=== PATIENT | male | born 1935 | race Two or more races ===

== ENCOUNTER 2019-09-22 13:00 | Outpatient (CLI) | payer MEDICARE, MEDICAID | END 2019-09-22 23:59 | disposition home or self-care (01) | LOC: WOU 13:00 | PROVIDERS: ATTEND Podiatrist Foot & Ankle Surgery | DX: I73.9 Peripheral vascular disease, unspecified (principal); L97.812 Non-pressure chronic ulcer of other part of right lower leg with fat layer exposed; Z48.817 Encounter for surgical aftercare following surgery on the skin and subcutaneous tissue | CPT/HCPCS: 11042 ==

== ENCOUNTER 2019-09-29 12:45 | Outpatient (CLI) | payer MEDICARE, MEDICAID | END 2019-09-29 23:59 | disposition home or self-care (01) | LOC: WOU 12:45 | PROVIDERS: ATTEND Podiatrist Foot & Ankle Surgery | DX: L97.812 Non-pressure chronic ulcer of other part of right lower leg with fat layer exposed (principal); L97.322 Non-pressure chronic ulcer of left ankle with fat layer exposed; L97.312 Non-pressure chronic ulcer of right ankle with fat layer exposed; I73.9 Peripheral vascular disease, unspecified; Z79.01 Long term (current) use of anticoagulants | CPT/HCPCS: 11042; 11045; A6210 ==

== ENCOUNTER 2019-10-06 13:00 | Outpatient (CLI) | payer MEDICARE, MEDICAID | END 2019-10-06 23:59 | disposition home or self-care (01) | LOC: WOU 13:00 | PROVIDERS: ATTEND Podiatrist Foot & Ankle Surgery | DX: I73.9 Peripheral vascular disease, unspecified (principal); L97.512 Non-pressure chronic ulcer of other part of right foot with fat layer exposed; L97.812 Non-pressure chronic ulcer of other part of right lower leg with fat layer exposed; L97.322 Non-pressure chronic ulcer of left ankle with fat layer exposed; L97.312 Non-pressure chronic ulcer of right ankle with fat layer exposed; Z79.01 Long term (current) use of anticoagulants | CPT/HCPCS: 11042; A6210 ==

== ENCOUNTER 2019-10-13 12:50 | Outpatient (CLI) | payer MEDICARE, MEDICAID | END 2019-10-13 23:59 | disposition home or self-care (01) | LOC: WOU 12:50 | PROVIDERS: ATTEND Podiatrist Foot & Ankle Surgery | DX: I73.9 Peripheral vascular disease, unspecified (principal); L97.512 Non-pressure chronic ulcer of other part of right foot with fat layer exposed; L97.812 Non-pressure chronic ulcer of other part of right lower leg with fat layer exposed; L97.322 Non-pressure chronic ulcer of left ankle with fat layer exposed; L97.312 Non-pressure chronic ulcer of right ankle with fat layer exposed; Z79.01 Long term (current) use of anticoagulants | CPT/HCPCS: 11042 ==

== ENCOUNTER 2019-10-20 13:00 | Outpatient (CLI) | payer MEDICARE, MEDICAID | END 2019-10-20 23:59 | disposition home or self-care (01) | LOC: WOU 13:00 | PROVIDERS: ATTEND Podiatrist Foot & Ankle Surgery | DX: I73.9 Peripheral vascular disease, unspecified (principal); L97.512 Non-pressure chronic ulcer of other part of right foot with fat layer exposed; L97.812 Non-pressure chronic ulcer of other part of right lower leg with fat layer exposed; L97.322 Non-pressure chronic ulcer of left ankle with fat layer exposed; L97.312 Non-pressure chronic ulcer of right ankle with fat layer exposed; Z79.01 Long term (current) use of anticoagulants | CPT/HCPCS: 11042; 87070-TC; 87186-TC ==

== ENCOUNTER 2019-10-27 12:50 | Outpatient (CLI) | payer MEDICARE, MEDICAID | END 2019-10-27 23:59 | disposition home or self-care (01) | LOC: WOU 12:50 | PROVIDERS: ATTEND Podiatrist Foot & Ankle Surgery | DX: L97.512 Non-pressure chronic ulcer of other part of right foot with fat layer exposed (principal); I87.2 Venous insufficiency (chronic) (peripheral); L97.322 Non-pressure chronic ulcer of left ankle with fat layer exposed; L97.312 Non-pressure chronic ulcer of right ankle with fat layer exposed; I48.91 Unspecified atrial fibrillation; Z79.01 Long term (current) use of anticoagulants | CPT/HCPCS: 11042; 11045 ==

== ENCOUNTER 2019-11-03 13:00 | Outpatient (CLI) | payer MEDICARE, MEDICAID | END 2019-11-03 23:59 | disposition home or self-care (01) | LOC: WOU 13:00 | PROVIDERS: ATTEND Podiatrist Foot & Ankle Surgery | DX: I73.9 Peripheral vascular disease, unspecified (principal); L97.512 Non-pressure chronic ulcer of other part of right foot with fat layer exposed; L97.322 Non-pressure chronic ulcer of left ankle with fat layer exposed; L97.312 Non-pressure chronic ulcer of right ankle with fat layer exposed; Z79.01 Long term (current) use of anticoagulants | CPT/HCPCS: 11042 ==

== ENCOUNTER 2019-11-27 13:30 | Outpatient (CLI) | payer MEDICARE, MEDICAID | END 2019-11-27 23:59 | disposition home or self-care (01) | LOC: WOU 13:30 | PROVIDERS: ATTEND Podiatrist Foot & Ankle Surgery | DX: L97.512 Non-pressure chronic ulcer of other part of right foot with fat layer exposed (principal); L97.322 Non-pressure chronic ulcer of left ankle with fat layer exposed; L97.312 Non-pressure chronic ulcer of right ankle with fat layer exposed; I73.9 Peripheral vascular disease, unspecified; I48.91 Unspecified atrial fibrillation; Z79.01 Long term (current) use of anticoagulants | CPT/HCPCS: 11042 ==

== ENCOUNTER 2020-11-05 00:43 | Inpatient (IN) | payer MEDICARE, MEDICAID, OTHER ==
[~2020-11-05] VITALS: Ht 188 cm; Wt 68.0 kg
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
--- NOTE | 2020-11-05 00:50 | NUR ---
PT WILL BE IN POLICE CUSTODY
[2020-11-05] MEDS ORDERED: VANCOMYCIN 1 GM VIAL ONE (01:05)
[2020-11-05] MEDS ORDERED: TDAP [DIPH/PERTUSSIS/TET] 0.5 ML VIAL IM ONE ×2 (01:06→01:30)
[2020-11-05 01:26] LABS: BASOPHILS % (AUTO) 0.3 % (0.0-2.0); EOSINOPHILS % (AUTO) 0.4 % (0.0-6.0); HEMATOCRIT 27 % (39-51); LYMPHOCYTES # (AUTO) 1.1 /CMM (0.8-4.8); LYMPHOCYTES % (AUTO) 7.3 % (20.0-44.0); MEAN CORPUSCULAR HGB CONC 33 g/dl (31.0-36.0); MEAN CORPUSCULAR VOLUME 91 fL (80-96); MONOCYTES # (AUTO) 0.8 /CMM (0.1-1.30); MONOCYTES % (AUTO) 5.2 % (2.0-12.0); NEUTROPHILS # (AUTO) 12.5 /CMM (1.8-8.9); NEUTROPHILS % (AUTO) 86.8 % (43.0-81.0); PLATELET COUNT (AUTO) 192 /CMM (150-450); WHITE BLOOD COUNT (AUTO) 14.4 K/uL (4.3-11.0)
[2020-11-05] MEDS ORDERED: IV NS 0.9% 1,000 ML BAG IV ONE (01:30)
[2020-11-05] MEDS ORDERED: VANCOMYCIN 1 GM in IV D5W 250 ML IV ONE (01:30)
[2020-11-05 01:47] LABS: CALCIUM, SERUM 8.9 mg/dL (8.5-10.1); CREATININE 1.3 mg/dL (0.6-1.3); POTASSIUM 3.6 mmol/L (3.5-5.1)
[2020-11-05 01:54] LABS: ALBUMIN 3.3 g/dL (3.4-5.0); BILIRUBIN,TOTAL 0.5 mg/dL (0.2-1.0); TOTAL PROTEIN, SERUM 6.3 g/dL (6.4-8.2)
--- NOTE | 2020-11-05 02:35 | NUR ---
DR GASCA PAGED PER DR GAN.
[2020-11-05] MEDS ORDERED: ACETAMINOPHEN 325 MG TABLET PO PRN (04:00)
[2020-11-05] MEDS ORDERED: MORPHINE SULFATE INJ 2 MG/ML DISP.SYRIN IV ONE (04:00)
[2020-11-05] MEDS ORDERED: IV NS 0.9% 1,000 ML IV PRN ×2 (04:00→09:30)
[2020-11-05] MEDS ORDERED: MORPHINE SULFATE INJ 2 MG/ML DISP.SYRIN IV PRN (04:00)
[2020-11-05] MEDS ORDERED: HYDROCODONE/APAP 5/325MG TABLET PO PRN (04:00)
[2020-11-05] MEDS ORDERED: MAG HYDROX/AL HYDROX/SIMETH 30 ML UDC PO PRN (04:00)
[2020-11-05] MEDS ORDERED: ONDANSETRON HCL/PF 4 MG/2 ML VIAL IVP PRN (04:00)
[2020-11-05] MEDS ORDERED: MAGNESIUM HYDROXIDE 30 ML UDC PO PRN (04:00)
[2020-11-05] MEDS ORDERED: TEMAZEPAM 15 MG CAPSULE PO PRN (04:00)
[2020-11-05] MEDS ORDERED: Z GUARD REMEDY 2 OZ OINT TP PRN (04:00)
--- NOTE | 2020-11-05 04:15 | NUR ---
REPORT GIVEN TO DIANE LAFLEUR FOR JAMES
--- NOTE | 2020-11-05 04:59 | NUR ---
PT TRANSPORTED TO 3RD FLOOR
[2020-11-05 05:00] VITALS: BP 102/52
[2020-11-05 05:11] VITALS: BP 102/52
--- NOTE | 2020-11-05 05:11 | NUR ---
MS BALE PILER NOTE PT TRANSPORTED VIA GURNEY TO UNIT AT THIS TIME. A/O X4, ABLE TO MAKE NEEDS KNOWN. PT ON BEDREST. GAIT IS UNSTEADY. PT STABLE ON ROOM AIR. NO SOB NOTED. NO S/S OF RESPIRATORY DISTRESS. PT DENIES PAIN OR DISCOMFORT AT THIS TIME. LACERATION NOTED ON LEFT FOOT, SKIN TEARS NOTED ON RIGHT FOOT AND RIGHT ANKLE. WOUND PHOTOS TAKEN AND FILED IN CHART. WOUND CONSULT ORDERED. IV ACCESS IN LEFT AC #18. IV ACCESS IS INTACT, PATENT, AND FLUSHING WELL. [employer] AT BEDSIDE. PT ORIENTED TO STAFF, ROOM, AND UNIT. SAFETY AND ASPIRATION PRECAUTIONS MAINTAINED. BED IN LOWEST LOCKED POSITION, HOB ELEVATED, SIDE RAILS UP X2. CALL LIGHT AND TABLE WITHIN REACH. WILL CONTINUE TO MONITOR.
--- NOTE | 2020-11-05 06:41 | NUR ---
MS RN CLOSING NOTE PT IS IN BED WITH EYES CLOSED, EASY TO AROUSE. A/O X4, ABLE TO MAKE NEEDS KNOWN. PT ON BEDREST. GAIT IS UNSTEADY. PT STABLE ON ROOM AIR. NO SOB NOTED. NO S/S OF RESPIRATORY DISTRESS. IV ACCESS IS INTACT, PATENT, AND FLUSHING WELL. [employer] AT BEDSIDE. ALL NEEDS HAVE BEEN MET. SAFETY AND ASPIRATION PRECAUTIONS MAINTAINED AT ALL TIMES. BED IN LOWEST LOCKED POSITION, HOB ELEVATED, SIDE RAILS UP X2. CALL LIGHT AND TABLE WITHIN REACH. WILL ENDORSE TO ONCOMING NURSE FOR JAMES.
--- NOTE | 2020-11-05 07:00 | NUR ---
RN OPENING NOTES RECEIVED PT AWAKE IN BED AT THIS TIME. AOX4. PT ABLE TO MAKE NEEDS KNOWN. NO SOB NOTED, NO C//O OF PAIN AT THIS TIME, NO S/S OF ANY APPARENT DISTRESS NOTED. RESPIRATIONS EVEN AND UNLABORED, STABLE ON RA. IV ACCESS NOTED IN LAC G#18, INTACT, PATENT AND FLUSHING WELL. TWO [employer] OFFICERS AT BEDSIDE. PT NOTED WITH LEFT LEG SPLINT AND RIGHT HAND IN CUFF. ASPIRATION AND SAFETY PRECAUTIONS IN PLACE AND MAINTAINED AT ALL TIMES. BED IN LOWEST LOCKED POSITION, SIDE RAILS UPX2, TABLE AND CALL LIGHT WITHIN REACH. WILL CONTINUE WITH PLAN OF CARE
[2020-11-05] MEDS ORDERED: PANTOPRAZOLE 40 MG TABLET.DR PO SCH (07:30)
[2020-11-05 08:00] VITALS: BP 102/61
[2020-11-05] MEDS ORDERED: DABI150C PO (08:41)
[2020-11-05] MEDS ORDERED: ENOXAPARIN SODIUM 40 MG/0.4 ML DISP.SYRIN SQ SCH (09:00)
[2020-11-05 09:46] LABS: THYROID STIMULATING HORMONE 13.084 uIU/mL (0.358-3.74)
[2020-11-05] MEDS ORDERED: LIDOCAINE 0.5% HCL 50 ML VIAL IJ ONE (15:30)
[2020-11-05] MEDS ORDERED: BUPIVACAINE 0.25% 75 MG/30 ML VIAL IJ ONE (15:30)
[2020-11-05 15:52] VITALS: BP 111/57
--- NOTE | 2020-11-05 16:15 | NUR ---
PT C/O ACHING LEFT FOOT PAIN OF 8/10. PT NOTED GRASPING. VS BP 111/57, HR 80, RR 20, TEMP 98.2, SPO2 96% ON RA. PER PT REQUEST, MORPHINE 4MG IV Q4H PRN FOR PAIN ADMINISTERED AT THIS TIME PER ORDER. WILL CONTINUE TO MONITOR
--- NOTE | 2020-11-05 16:30 | NUR ---
PIV INSERTED IN GUILLAUME G#20 AT THIS TIME. GOOD BLOOD RETURN NOTED, PT TOLERATED WELL. NO SIGN OF BLEEDING. WILL CONTINUE TO MONITOR
[2020-11-05] MEDS ORDERED: CEPH500C2 PO (17:08)
--- NOTE | 2020-11-05 18:57 | NUR ---
RN CLOSING NOTES PT AWAKE IN BED AT THIS TIME. PT REMAINED STABLE THROUGHOUT SHIFT. ALL NEEDS, MEDICATIONS, AND CARE ADMINISTERED ANTICIPATED PER ORDER. WOUND TREATMENT ADMINISTERED. [employer] AT BEDSIDE. SAFETY PRECAUTIONS IN PLACE AND MAINTAINED AT ALL TIMES. BED IN LOWEST LOCKED POSITION, HOB ELEVATED, SIDE RAILS UP X 2. CALL LIGHT AND TABLE WITHIN REACH. WILL ENDORSE TO GEOGRAPHIC INFORMATION SYSTEMS DIRECTOR NURSE FOR JAMES
--- NOTE | 2020-11-05 19:15 | NUR ---
MS RN OPENING NOTES: RECEIVED PATIENT IN BED, AWAKE, A/O X4. NO S/S OF DISTRESS NOTED. CALL LIGHT WITHIN REACH. BED IN LOWEST AND LOCKED POSITION. BED ALARM ON. WITH 2 [employer] OFFICERS AT THE BEDSIDE. PATIENT'S RIGHT HAND ON HANDCUFFED.URINAL AT THE BEDSIDE. WITH LEFT FOOT DRESSING INTACT.
[2020-11-05 20:00] VITALS: BP 95/51
[2020-11-05] MEDS ORDERED: VANCOMYCIN 1 GM in IV D5W 250ml IV SCH (20:00)
--- NOTE | 2020-11-05 21:20 | NUR ---
LEFT FOREARM AND RIGHT UPPER ARM IV REMOVED, NO BLEEDING NOTED. FOOT BOOT WITH SPLINT PLACED ON THE LEFT FOOT. D/C INSTRUCTIONS PACKET PRINTED AND GIVEN TO THE PATIENT WITH THE PRESCRIPTION. WRITTEN ORDER OF OKAY TO BOOK MEDICALLY DONE BY DR DULCE PAULA INCLUDED IN THE D/C PACKET. PATIENT ASSISTED TO THE WHEELCHAIR, NO WEIGHT BEARING ON THE LEFT FOOT. BELONGINGS SENT WITH THE PATIENT. PATIENT D/C WITH THE 2 [employer] OFFICERS.
== END 2020-11-05 21:53 | DRG 463 ==
LOC: ER 00:46 → MED 04:17
PROVIDERS: ADMIT Student in an Organized Health Care Education/Training Program; ATTEND Student in an Organized Health Care Education/Training Program
PROC: 04L Lower Arteries, Occlusion (ICD-10-PCS; principal; 2020-11-05)
PROC: 0JQR0ZZ Repair Left Foot Subcutaneous Tissue and Fascia, Open Approach (ICD-10-PCS; 2020-11-05)
PROC: 0JBR0ZZ Excision of Left Foot Subcutaneous Tissue and Fascia, Open Approach (ICD-10-PCS; 2020-11-05)
DX: S92.355A Nondisplaced fracture of fifth metatarsal bone, left foot, initial encounter for closed fracture (principal); N17.0 Acute kidney failure with tubular necrosis; D68.59 Other primary thrombophilia; E44.1 Mild protein-calorie malnutrition; Z68.1 Body mass index [BMI] 19.9 or less, adult; V09.20XA Pedestrian injured in traffic accident involving unspecified motor vehicles, initial encounter; Y93.89 Activity, other specified; Y92.89 Other specified places as the place of occurrence of the external cause; E86.0 Dehydration; I48.91 Unspecified atrial fibrillation; D72.829 Elevated white blood cell count, unspecified; Z79.01 Long term (current) use of anticoagulants; D50.9 Iron deficiency anemia, unspecified; E88.09 Other disorders of plasma-protein metabolism, not elsewhere classified; S91.312A Laceration without foreign body, left foot, initial encounter; R58 Hemorrhage, not elsewhere classified; Z20.822 Contact with and (suspected) exposure to COVID-19
CPT/HCPCS: 36415; 73630-TC; 80053-TC; 82728-TC; 83540-TC; 84439-TC; 84443-TC; 85025-TC; 85610-TC; 87081-TC; 90715; 93307-TC; A6253; A6403; C9803; G0378; J1650; J2270; J3370; J3490; J7030; J7060